=== PATIENT | male | born 1995 | race Caucasian/White ===

== ENCOUNTER 2024-01-19 14:40 | Emergency (ER) | payer MEDICAID, SELFPAY ==
[2024-01-19 14:43] VITALS: BP 126/88; PULSE 80; RESP 18; TEMP 36.7; O2SAT 97; BMI 26.3
--- NOTE | 2024-01-19 14:58 | CT_ITS ---
EXAM: CT HEAD WITHOUT INTRAVENOUS CONTRAST CLINICAL INDICATION: Seizures TECHNIQUE: Multiple axial images were obtained of the head without intravenous contrast. This CT exam was performed using one or more of the following dose reduction techniques: automated exposure control, adjustment of the mA and/or kV according to patient size, and/or use of iterative reconstruction technique. RADIATION DOSE: CTDIvol = 44.99 mGy, DLP = 796.11 mGy-cm COMPARISON: No relevant prior studies available. FINDINGS: BRAIN AND EXTRA-AXIAL SPACES: Unremarkable. No intra- or extra-axial hemorrhage. No evidence of acute infarct. No intracranial mass or mass effect. There is preservation of the cortes/white matter interface. Posterior fossa structures are unremarkable. Ventricles are appropriate for age. No hydrocephalus. Basal cisterns are patent. BONES/JOINTS: Unremarkable. No discrete lytic or blastic abnormalities. SINUSES: Unremarkable as visualized. Clear. MASTOID AIR CELLS: Unremarkable. Clear. ORBITS: Visualized globes, extraocular muscles, optic nerves and retrobulbar fat appear unremarkable. CT/Brain/Head without Contrast IMPRESSION: Negative head/brain CT without intravenous contrast. Electronically Signed: Binu Foley MD at 15:48 EST ,
--- NOTE | 2024-01-19 15:00 | EKG12_ITS ---
Test Reason : SEIZURE Blood Pressure : */* mmHG Vent. Rate : 76 BPM Atrial Rate : 76 BPM P-R Int : 126 ms QRS Dur : 88 ms QT Int : 356 ms P-R-T Axes : 27 59 32 degrees QTcB Int : 400 ms Normal sinus rhythm Normal ECG Confirmed by Bhanu Avery ([id number]), associate entertainment editor ALEXIS PAYTON ([id number]) on 01/21/2024 11:36:41 AM Referred By: Miquel Lord Confirmed By: Bhanu Avery
--- NOTE | 2024-01-19 15:01 | EX.ED.DYSGE1 ---
HPI History of Present Illness Chief Complaint: Seizure Narrative Narrative: Chief complaint and HPI: Seizure-like activity 28-year-old male with history of anxiety presents for evaluation of recurrent seizure-like activity. Patient states that he was incarcerated in 2021 and since then has been having intermittent seizure-like activity. He states that he notices that his seizure-like activity increases with stress. Patient states he has a history of anxiety in which she is not on any medication. He states in presenting 2021 he was given Prozac, lithium, Haldol which he no longer takes. He states that he thinks this is what triggered his seizure-like activity. Patient states that he has been under a lot of stress lately with financial reasons as well as his mother. He states that he saw his mother over the holiday. His significant other states since he visited with his mother he has had approximately 7 episodes of seizure-like activity. Significant other states that they last seconds to 1 to 2 minutes. Patient does not have incontinence of urine or bowel. Does not bite his tongue. Significant other states that there is a period after his seizure where he seems slightly confused but this does not last long. Patient states some of his seizure-like activity is tonic-clonic. Other is spacing out. Patient's last reported seizure-like activity was around noon today. Patient denies any headache, vision changes, fever, chills, URI symptoms, chest pain, shortness of breath, abdominal pain, nausea, vomiting, dysuria. He denies any recent travel. Patient denies any illicit drug use. Review of systems: See HPI Medications: As listed on the chart Allergies: As listed on the chart PFSH: Per chart Vital signs: As listed on the chart. Reviewed. Physical exam: Gen: A&O x3, NAD Head: Normocephalic, atraumatic Eyes: No sclera icterus, conjunctiva clear, PERRL, EOMI ENT: TMs clear BL, moist mucous membranes, posterior oropharynx unremarkable, no oral or tongue injury Neck: Trachea midline, No JVD, Full ROM, No meningismus CV: RRR, no murmurs, no peripheral edema Resp: Lungs CTA BL, no w/r/c GI: Abd soft, non-distended, non-tender, no r/r/g Musc: Full ROM, no deformity Skin: Warm, dry, no rash, multiple tattoos Neuro: Alert, oriented, grossly intact, sensation intact Psych: Cooperative, appropriate mood and affect [facility] Medical History (Updated 01/19/24 @ 16:[address] Miquel Lord DO) Seizure Allergy/AdvReac Type Severity Reaction Status Date / Time fluoxetine (From Prozac) Allergy Other Verified 01/19/24 14:43 haloperidol (From Haldol) Allergy Other Verified 01/19/24 14:43 lithium Allergy Other Verified 01/19/24 14:43 Family History no significant family his Surgical History no surgical history Social History Smoking Status: Current some day smoker tobacco type: cigarettes EXAM Physical Exam Const Vital Signs: 01/19/24 14:43 Temperature 98.1 F Temperature Source Oral Pulse Rate 80 Respiratory Rate 18 Blood Pressure 126/88 H Blood Pressure Mean 100 Pulse Ox 97 Oxygen Delivery Method Room Air MDM MDM MDM Narrative Medical decision making narrative: 28-year-old male with history of anxiety not on medication presents for evaluation of recurrent seizure-like activity. Patient and significant other feel that they are triggered by stress. Differential diagnosis includes but is not limited to seizures, pseudoseizures, intracranial abnormality, electrolyte abnormality, substance intoxication. Seizure workup ordered CT head. EKG and chest x-ray reviewed see below. CBC without leukocytosis or anemia. No SARAH. This. Troponin unremarkable. UA negative for UTI. Talk screen negative. Ethanol level negative. CT head without any acute abnormality. Lactic acid unremarkable. You would expect lactic acid to be elevated after seizure. Suspect that patient may be having pseudoseizures however cannot rule out seizure without EEG. Given that patient has multiple episodes over the past several days. Recommendation is to admit the patient to the hospital for EEG and further seizure workup. Upon talking to the patient and updating him all his results and the plan. Patient states that he does not want to be admitted to the hospital. I explained to him that if he goes home and has another episode it could cause bodily harm or especially if he hits his head on concrete or if it happens behind the wheel while driving. Patient states that he understands these risks and will not come into the hospital due to his previous incarceration. Given this information, I did contact [facility] neurology in order to provide him with the best treatment/plan given that he will not accept admission. I spoke to Dr. Caro she agrees that the patient needs to be admitted with further workup and EEG. Given that patient will not likely have close follow-up she does not recommend starting any antiepileptic's. Given that the neurologist agrees that it is unsafe for the patient to discharge home again discussed my recommendations for admission. Patient again declined. The patient has chosen to leave against medical advice. I personally explained to them that choosing to do so may result in permanent bodily harm or . I discussed at length that without further evaluation and monitoring there may be unforeseen circumstances and deterioration causing permanent bodily harm or because of their choice. I told him that he should not drive or be behind the wheel or operate heavy machinery as if he develops seizure-like activity he can hurt himself or others. He is alert and oriented and can make his own own decisions. He states that he is aware of the serious risks as explained, but they continue to wish to leave against medical advice. Considering their decision to leave against medical advice, follow-up has been arranged and they are aware of the importance of following up as instructed. They have been advised that they should return to the ED immediately if they change their mind at any time, or if their condition begins to change or worsen. He confirmed understanding. EKG: Interpreted by me/EM physician: EKG shows normal sinus rhythm without any acute ischemic changes. Heart rate 76. QTc within normal limits. Diagnostic: Interpreted by me/EM physician: Chest x-ray without pneumonia, effusion, pneumothorax, cardiomegaly Impression: 1. Seizure-like activity, pseudoseizure versus seizure 2. Left AGAINST MEDICAL ADVICE Lab Data Labs: Laboratory Results - last 24 hr 01/19/24 01/19/24 14:53 15:02 WBC 8.0 RBC 5.18 Hgb 15.8 Hct 46.5 MCV 89.8 MCH 30.5 MCHC 34.0 RDW Std Deviation 39.9 RDW Coeff of Belkys 12.0 Plt Count 321 MPV 8.5 Immature Gran % (Auto) 0.500 Neut % (Auto) 64.0 Lymph % (Auto) 28.2 Taney % (Auto) 6.0 Eos % (Auto) 0.9 Baso % (Auto) 0.4 Absolute Neuts (auto) 5.1 Absolute Lymphs (auto) 2.25 Nucleated RBC % 0 Sodium 138 Potassium 4.5 Chloride 105 Carbon Dioxide 29.0 Anion Gap 4 L BUN 17 Creatinine 0.97 Estim Creat Clear Calc 121.83 Est GFR (MDRD) Af Amer 119 Est GFR (MDRD) Non-Af 99 BUN/Creatinine Ratio 17.5 Glucose 101 Lactic Acid 0.7 Calcium 9.0 Magnesium 2.1 Total Bilirubin 0.30 AST 23 ALT 37 Alkaline Phosphatase 86 Troponin I High Sens < 3 L Total Protein 7.8 Albumin 4.1 Globulin 3.7 Albumin/Globulin Ratio 1.1 Urine Color Yellow Urine Clarity Clear Urine pH 6.5 Ur Specific Beauty 1.010 Urine Protein Negative Urine Glucose (UA) Normal Urine Ketones Negative Urine Occult Blood Negative Urine Nitrite Negative Urine Bilirubin Negative Urine Urobilinogen Normal Ur Leukocyte Esterase Negative Urine RBC 0 SEEN Urine WBC 0 SEEN Ur Squamous Epith Cells 0 SEEN Urine Bacteria 0 SEEN Urine Mucus 0 SEEN Urine Opiates Screen NEGATIVE Urine Methadone Screen NEGATIVE Ur Barbiturates Screen NEGATIVE Ur Phencyclidine Scrn NEGATIVE Ur Amphetamines Screen NEGATIVE MDMA (Ecstasy) Screen NEGATIVE U Benzodiazepines Scrn NEGATIVE Urine Cocaine Screen NEGATIVE U Cannabinoids Screen NEGATIVE Ur Drug Screen Comment Ethyl Alcohol < 3.0 Radiography Diagnostic Testing: Clinical Impression(s) from Imaging Studies Brain CT 01/19/24 14:58 IMPRESSION: Negative head/brain CT without intravenous contrast. Electronically Signed: Binu Foley MD at 15:48 EST , Chest X-Ray 01/19/24 15:20 IMPRESSION: No radiographic evidence of acute cardiopulmonary disease. Electronically Signed: Binu Foley MD at 15:57 EST , Discharge Plan Triage Chief Complaint: Seizure ED Provider: Miquel Lord Dx/Rx/DC Orders Clinical Impression: Seizure-like activity Instructions: ED Seizure, Recurrent (Adult) Primary Care Provider: Care Physician,No Primary Referrals: Anthony Garcia MD [Med Staff - Active Staff] - 3-5 Days Tani Hillman MD [Non-Staff] - As soon as possible Care Physician,No Primary [Primary Care Provider] - Activity Restrictions/Additional Instructions: You have chosen to leave AGAINST MEDICAL ADVICE. I did provide follow-up with a neurologist above as well as a primary care physician. Please call to make an appointment as soon as possible with neurology. It is not safe for you to drive given your seizure-like activity. You should not be driving or operating heavy machinery. You should return immediately to the ED if you change your mind or at any time or if your condition begins to change or worsen. Print Language: Guamanian Disposition Disposition: Against Medical Advice Discharge Date/Time: 01/19/24 16:48
[2024-01-19 15:15] LABS: Bacteria 0 SEEN /hpf (None Seen); Mucous, Urine 0 SEEN /hpf (<or=2+); Red Blood Cells-Urine 0 SEEN /hpf (0-5); Squamous Epithelial Cells - UA 0 SEEN /hpf (0-5); White Blood Cells 0 SEEN /hpf (0-5)
[2024-01-19 15:20] LABS: Absolute Lymphocyte Count 2.25 X10^3/uL (0.83-4.51); Absolute Neutrophil Count 5.1 X10^3/uL (2.0-7.7); Basophil# 0.03 X10^3/uL; Basophil% 0.4 % (0-1); Eosinophil# 0.07 X10^3/uL; Eosinophils% 0.9 % (0-5); Hematocrit 46.5 % (40-54); Hemoglobin 15.8 g/dL (13.0-16.5); Lymphocyte # 2.25 X10^3/ul (0.83-4.51); Lymphocyte % 28.2 % (19-41); Mean Corpuscular Hgb 30.5 pg (27.0-32.0); Mean Corpuscular Volume 89.8 fL (80-94); Mean Platelet Vol. 8.5 fl (6.2-12.0); Monocyte# 0.48 X10^3/uL; NRBC Flagged by Analyzer 0 % (0-5); Neutrophil # 5.12 X10^3/uL (2.7-7.7); Platelet Count 321 K/mm3 (150-450); RBC Distribution Width SD 39.9 fl (35.1-43.9); Red Blood Count 5.18 M/mm3 (4.6-6.2)
--- NOTE | 2024-01-19 15:20 | RAD_ITS ---
EXAM: XR CHEST, 2 VIEWS CLINICAL INDICATION: Seizures TECHNIQUE: Frontal and lateral views of the chest. COMPARISON: No relevant prior studies available. FINDINGS: LUNGS AND PLEURAL SPACES: Unremarkable. No consolidation or edema. No pneumothorax. No effusion. HEART: Unremarkable. Cardiac silhouette not enlarged. MEDIASTINUM: Central airways and mediastinal contour are unremarkable. BONES/JOINTS: Unremarkable. No acute fracture. SOFT TISSUES: Unremarkable. RAD/Chest PA and Lateral IMPRESSION: No radiographic evidence of acute cardiopulmonary disease. Electronically Signed: Binu Foley MD at 15:57 EST ,
[2024-01-19 15:29] LABS: Color, Urine Yellow (Yellow); Glucose, Dipstick Normal (Normal); Ketone-Dipstick Negative (Negative); Leukocyte Esterase-Dipstick Negative /ul (Negative); Nitrite-Dipstick Negative (Negative); Occult Blood-Urine Negative /ul (Negative); Protein-Dipstick Negative (Negative); Urine Bilirubin Dipstick Negative (Negative); Urine Clarity Clear (Clear); Urine Urobilinogen Normal (Normal); Urine pH 6.5 (5.0 - 8.0)
[2024-01-19 15:34] LABS: Alcohol, Blood (Medical)-Serum < 3.0 mg/dL
[2024-01-19 15:37] LABS: Amphetamine Urine VISTA NEGATIVE (<1000 ng/mL); Barbiturate Urine VISTA NEGATIVE (< 200 ng/mL); Benzodiazepine Urine VISTA NEGATIVE (< 200 ng/mL); Cocaine Urine VISTA NEGATIVE (< 300 ng/mL); Ecstacy Urine VISTA NEGATIVE (< 500 ng/mL); Methadone Urine VISTA NEGATIVE (< 300 ng/mL); PCP Urine VISTA NEGATIVE (< 25 ng/mL); THC Urine VISTA NEGATIVE (< 50 ng/mL); Vista UDS pH Range 6
[2024-01-19 15:39] LABS: ALB/GLOB Ratio 1.1 RATIO (0.9-2.4); AST(SGOT) 23 U/L (15-37); Alanine Aminotransfer ALT/SGPT 37 U/L (16-61); Albumin, Serum 4.1 g/dL (3.2-5.0); Alkaline Phosphatase 86 U/L (45-117); Anion Gap 4 (5-15); BUN 17 mg/dL (7-18); BUN/Creat Ratio 17.5 RATIO (10-20); Chloride 105 mmol/L (98-107); Creatinine, Serum 0.97 mg/dL (0.70-1.30); EST Glomerular Filtration Rate 99 mL/min (>60); Est Glom Filt Rate - Afr Amer 119 mL/min (>60); Estimated Creatinine Clearance 121.83 ml/min; Globulin 3.7 g/dL (2.2-4.2); Glucose 101 mg/dL (74-106); Magnesium 2.1 mg/dL (1.6-2.6); Potassium 4.5 mmol/L (3.5-5.1); Protein, Total 7.8 g/dL (6.4-8.2); Sodium Level 138 mmol/L (136-145); Troponin-I HS < 3 pg/mL (3.0-78.0)
[2024-01-19 15:40] LABS: Lactic Acid 0.7 mmol/L (0.4-1.9)
== END 2024-01-19 16:48 | disposition left against medical advice (07) ==
PROVIDERS: Emergency Provider Surgery; Referring Provider Surgery; Visit Provider Surgery
DX: R56.9 Unspecified convulsions (principal); F17.210 Nicotine dependence, cigarettes, uncomplicated; Z53.29 Procedure and treatment not carried out because of patient's decision for other reasons
CPT/HCPCS: 70450; 71046; 80053; 80307; 81001; 82077; 83605; 83735; 84484; 85025; 93005; 99284; A4216